=== PATIENT | male | born 1965 | race Caucasian/White ===

== ENCOUNTER 2017-04-25 13:30 | Emergency (ER) | payer OTHER ==
[~2017-04-25] VITALS: Ht 167.6 cm; Wt 93.8 kg
[2017-04-25 14:45] LABS: HEMATOCRIT 46.1 % (38.0-50.0); HEMOGLOBIN 15.8 G/DL (12.5-16.6); MCH 28.3 PG (29.0-34.0); MCHC 34.3 G/DL (30.0-36.0); MCV 82.6 FL (86-99); PLATELET COUNT 322 K/uL (156-360); RBC DIS.WIDTH-SD 38.8 % (39-53); RED BLOOD COUNT 5.58 M/uL (4.00-5.50); WHITE BLOOD COUNT 7.9 K/uL (4.1-10.2)
[2017-04-25 14:56] LABS: ALBUMIN 4.2 g/dL (3.2-4.8); CHLORIDE 107 mEq/L (99-109); POTASSIUM 3.8 mEq/L (3.7-5.4); SODIUM 139 mEq/L (136-147)
[2017-04-25 14:58] LABS: GLUCOSE 144 mg/dL (70-99)
[2017-04-25 14:59] LABS: TOTAL PROTEIN 7.6 g/dL (6.4-8.3)
[2017-04-25 15:00] LABS: TOTAL BILIRUBIN 0.7 mg/dL (0.0-1.0)
[2017-04-25 15:02] LABS: ALKALINE PHOSPHATASE 130 IU/L (3-129); CREATININE 0.9 mg/dL (0.6-1.3); GFR ESTIMATE (CALCULATED) > 59 mL/min/ (58.99-99999)
[2017-04-25 15:03] LABS: UREA NITROGEN (BUN) 12 mg/dL (9-23)
[2017-04-25 15:04] LABS: AST (GOT) 16 IU/L (2-34)
[2017-04-25 15:05] LABS: ALT (GPT) 32 IU/L (3-49)
[2017-04-25 15:11] LABS: TROP-I INTERPRETATION NEGATIVE; TROPONIN-I < 0.01 ng/mL (0.0-0.30)
[2017-04-25] MEDS ORDERED: MOBIC7.5 MG PO (16:46)
[2017-04-25] MEDS ORDERED: FLEXERIL10 MG PO (16:46)
[2017-04-25] MEDS ORDERED: LIDODERM 5% P1 PATCH TD (16:46)
[2017-04-25 17:05] VITALS: BP 148/98
== END 2017-04-25 17:14 | disposition home or self-care (01) ==
LOC: EME 13:30
PROVIDERS: Nurse Practitioner Family
DX: M54.31 Sciatica, right side (principal); J06.9 Acute upper respiratory infection, unspecified; I10 Essential (primary) hypertension; Z82.49 Family history of ischemic heart disease and other diseases of the circulatory system
CPT/HCPCS: 70450; 71046; 80053; 84484; 85027; 93005; 99281; 99284